=== PATIENT | female | born 1960 | race Caucasian/White ===

== ENCOUNTER 2020-03-01 12:29 | Observation (INO) ==
[~2020-03-01 12:29] MED LIST: Acetaminophen IV 1,000 MG/100 ML INFUS..BTL IVPB ONE; Famotidine 20 MG/2 ML VIAL IVP ONE; Total Joint Mixture (50 ml) INTRAART ONE; diazePAM 5 MG TABLET PO ONE
[2020-03-01] MEDS ORDERED: CeFAZolin Syr 2,000MG/20 ML 2,000 MG/20 ML SYRINGE IVPB ONE (13:03)
[2020-03-01] MEDS ORDERED: Ringers Solution, Lactated 1,000 ML IVC SCH (13:15)
[2020-03-01] MEDS ORDERED: Ondansetron 4 MG/2 ML VIAL IVP ONE (13:22)
[2020-03-01] MEDS ORDERED: Vancomycin 1,000 MG VIAL ONE ×2 (13:40→13:45)
[2020-03-01] MEDS ORDERED: *HR* FentaNYL (PF) 100 MCG/2 ML VIAL ONE (13:41)
[2020-03-01] MEDS ORDERED: *HR* Succinylcholine 200 MG/10 ML VIAL IVP ONE (13:41)
[2020-03-01] MEDS ORDERED: Ethanol\\Acetic Acid\\Na Ace\\Ben 1,000 ML IRRIG.SOLN IR ONE ×2 (13:41→13:45)
[2020-03-01] MEDS ORDERED: *HR* Propofol 200 MG/20 ML VIAL IVP ONE ×2 (13:41→15:10)
[2020-03-01] MEDS ORDERED: Lidocaine -MPF 2% 2 ML VIAL ONE (13:41)
[2020-03-01] MEDS ORDERED: *HR* Midazolam HCl 2 MG/2 ML VIAL ONE (13:41)
[2020-03-01 14:14] LABS: INR 0.9; Prothrombin Time 10.6 Seconds (9.4-12.1)
[2020-03-01] MEDS ORDERED: Ropivacaine/PF 0.5% 30 ML VIAL ONE (14:46)
[2020-03-01] MEDS ORDERED: Dexamethasone 4 MG/ML VIAL ONE (15:50)
[2020-03-01] MEDS ORDERED: Ondansetron 4 MG/2 ML VIAL ONE (15:50)
[2020-03-01] MEDS: *HR* HYDROmorphone PF 0.5 MG/0.5 ML SYRINGE IVP PRN ×3 (17:28→17:52)
[2020-03-01] MEDS ORDERED: *HR* Promethazine 25 MG/ML VIAL IVP PRN (17:49)
[2020-03-01 18:11] LABS: Hematocrit 35.6 % (35.3-44.9); Hemoglobin 11.1 g/dL (11.5-15.4)
[2020-03-01] MEDS ORDERED: Naloxone 0.4 MG/ML INJ IVP PRN (18:14)
[2020-03-01] MEDS ORDERED: Sennosides 8.6 MG TABLET PO PRN (18:14)
[2020-03-01] MEDS ORDERED: *HR* Dextrose 50 % in Water (Vial) 50 ML VIAL IVP PRN (18:14)
[2020-03-01] MEDS ORDERED: Dextrose Gel 15 GM/37.5 ML TUBE PO PRN ×2 (18:14)
[2020-03-01] MEDS ORDERED: MOM Conc 10 ML UD.LIQ PO PRN (18:14)
[2020-03-01] MEDS ORDERED: D5% in Water 1,000 ML IVC PRN (18:14)
[2020-03-01] MEDS: Insulin LISPRO 300 UNITS/3 ML VIAL SQ SCH ×2 (18:48→22:22)
[2020-03-01] MEDS: Ascorbic Acid 500 MG TABLET PO SCH (18:56)
[2020-03-01] MEDS: *HR* Enoxaparin 30 MG/0.3 ML SYRINGE SQ SCH (18:56)
[2020-03-01] MEDS: Ringers Solution, Lactated 1,000 ML IVC SCH (18:57)
[2020-03-01] MEDS: *HR* Warfarin 7.5 MG TABLET PO SCH (19:30)
[2020-03-01] MEDS: HYDROcodone BIT/Homatropine 5 MG TABLET PO PRN (19:52)
[2020-03-02] MEDS: CeFAZolin 2 GM/120 ML BAG IVPB SCH ×2 (00:37→08:42)
[2020-03-02 01:39] LABS: Basophils % 0.1 %; Hemoglobin 10.2 g/dL (11.5-15.4); Immature Granulocytes % 0.7 % (0-4); Lymphocytes # 0.8 K/mcL (0.6-4.6); Lymphocytes % 6.1 %; Mean Corpuscular HGB Conc 31.9 g/dL (31.6-35.5); Mean Corpuscular Hemoglobin 29.6 pg (28.0-33.3); Mean Corpuscular Volume 92.8 fL (83.0-100.0); Mean Platelet Volume 10.3 fL (9.4-12.4); Monocytes # 0.3 K/mcL (0.0-1.3); Neutrophils # 12.4 K/mcL (1.6-8.9); Platelet Count 163 K/mcL (140-400); Red Blood Count 3.45 M/mcL (3.82-4.97); Red Cell Distribution Width 12.9 % (11.5-14.5); Segmented Neutrophils % 91.1 %; White Blood Count 13.6 K/mcL (4.3-11.1)
[2020-03-02 01:58] LABS: BUN/Creatinine Ratio 16 (6-26); Blood Urea Nitrogen 13 mg/dL (8-23); Calcium 7.9 mg/dL (8.6-10.3); Carbon Dioxide 23 mEq/L (23-29); Chloride 104 mEq/L (98-107); Glucose 150 mg/dL (70-105); Osmolality,Calculated 285 (280-300); Potassium 4.3 mEq/L (3.5-5.1); Sodium 136 mEq/L (136-145); eGFR For African Americans > 60 (> 60); eGFR For Non-African Americans > 60 (> 60)
[2020-03-02] MEDS ORDERED: Acetaminophen IV 1,000 MG/100 ML INFUS..BTL IVPB PRN (02:13)
[2020-03-02] MEDS: HYDROcodone BIT/Homatropine 5 MG TABLET PO PRN ×2 (05:19→14:44)
[2020-03-02] MEDS: *HR* Enoxaparin 30 MG/0.3 ML SYRINGE SQ SCH ×2 (05:19→17:09)
[2020-03-02] MEDS ORDERED: 0.9 % Sodium Chloride 500 ML IVC ONE (07:30)
[2020-03-02] MEDS: Ketorolac 30 MG/ML VIAL IVP PRN ×2 (08:36→20:02)
[2020-03-02] MEDS: Cyanocobalamin (B-12) 1,000 MCG TABLET PO SCH (08:39)
[2020-03-02] MEDS: Cholecalciferol (D-3) 1,000 UNIT (25MCG) TABLET PO SCH (08:39)
[2020-03-02] MEDS: Multivit/Ca/Min/Fe/FA 1 TAB TABLET PO SCH (08:40)
[2020-03-02] MEDS: FLUoxetine 20 MG CAPSULE PO SCH (08:40)
[2020-03-02] MEDS: Ascorbic Acid 500 MG TABLET PO SCH ×2 (08:40→17:09)
[2020-03-02] MEDS: Insulin LISPRO 300 UNITS/3 ML VIAL SQ SCH ×4 (08:43→21:22)
[2020-03-02] MEDS ORDERED: NON-FORMULARY MEDICATION 1 EACH EACH (Multivit-Min/Fa/Lycopen/Lutein [Adults 50+ Multivita PO SCH (09:00)
[2020-03-02] MEDS ORDERED: NON-FORMULARY MEDICATION 1 EACH EACH (Fluticasone/Umeclidin/Vilanter [Trelegy Ellipta 100- IH SCH (09:00)
[2020-03-02] MEDS: Budesonide/Formoterol 160/4.5 1 PUFF INH IH SCH ×2 (10:50→20:22)
[2020-03-02] MEDS: Tiotropium 18 MCG inhalation IH SCH (10:51)
[2020-03-02] MEDS: Ondansetron 4 MG/2 ML VIAL IVP PRN ×2 (11:00→19:58)
[2020-03-02] MEDS: *HR* Warfarin 7.5 MG TABLET PO SCH (17:10)
[2020-03-02] MEDS: *HR* OxyCODONE Immed Rel 5 MG TABLET PO PRN (17:20)
[2020-03-03] MEDS: *HR* Promethazine 25 MG/ML VIAL IVP PRN ×3 (00:04→16:50)
[2020-03-03] MEDS: *HR* OxyCODONE Immed Rel 5 MG TABLET PO PRN ×5 (00:04→21:18)
[2020-03-03] MEDS: Ondansetron 4 MG/2 ML VIAL IVP PRN ×3 (05:05→21:19)
[2020-03-03] MEDS: *HR* Enoxaparin 30 MG/0.3 ML SYRINGE SQ SCH ×2 (05:06→16:48)
[2020-03-03 06:43] LABS: Basophils # 0.1 K/mcL (0.0-0.2); Basophils % 0.4 %; Eosinophils # 0.1 K/mcL (0.0-0.6); Eosinophils % 0.5 %; Hematocrit 28.2 % (35.3-44.9); Immature Granulocytes % 0.9 % (0-4); Lymphocytes # 2.3 K/mcL (0.6-4.6); Lymphocytes % 17.8 %; Mean Corpuscular HGB Conc 31.9 g/dL (31.6-35.5); Mean Platelet Volume 10.6 fL (9.4-12.4); Monocytes # 1.2 K/mcL (0.0-1.3); Monocytes % 9.5 %; Neutrophils # 9.2 K/mcL (1.6-8.9); Platelet Count 182 K/mcL (140-400); Red Cell Distribution Width 13.4 % (11.5-14.5); Segmented Neutrophils % 70.9 %
[2020-03-03 07:05] LABS: BUN/Creatinine Ratio 17 (6-26); Blood Urea Nitrogen 15 mg/dL (8-23); Calcium 8.1 mg/dL (8.6-10.3); Carbon Dioxide 25 mEq/L (23-29); Chloride 105 mEq/L (98-107); Glucose 118 mg/dL (70-105); Osmolality,Calculated 286 (280-300); Potassium 4.1 mEq/L (3.5-5.1); Sodium 137 mEq/L (136-145); eGFR For African Americans > 60 (> 60); eGFR For Non-African Americans > 60 (> 60)
[2020-03-03] MEDS: Budesonide/Formoterol 160/4.5 1 PUFF INH IH SCH ×2 (08:08→19:45)
[2020-03-03] MEDS: Tiotropium 18 MCG inhalation IH SCH (08:08)
[2020-03-03] MEDS: Ringers Solution, Lactated 1,000 ML IVC SCH ×2 (08:12→12:21)
[2020-03-03] MEDS: Insulin LISPRO 300 UNITS/3 ML VIAL SQ SCH ×4 (08:14→20:42)
[2020-03-03] MEDS: Cyanocobalamin (B-12) 1,000 MCG TABLET PO SCH (10:06)
[2020-03-03] MEDS: Cholecalciferol (D-3) 1,000 UNIT (25MCG) TABLET PO SCH (10:06)
[2020-03-03] MEDS: Multivit/Ca/Min/Fe/FA 1 TAB TABLET PO SCH (10:06)
[2020-03-03] MEDS: Ascorbic Acid 500 MG TABLET PO SCH ×2 (10:06→16:47)
[2020-03-03] MEDS: FLUoxetine 20 MG CAPSULE PO SCH (10:07)
[2020-03-03] MEDS: HYDROcodone BIT/Homatropine 5 MG TABLET PO PRN (13:24)
[2020-03-03] MEDS: *HR* Warfarin 7.5 MG TABLET PO SCH (17:02)
[2020-03-04] MEDS: *HR* OxyCODONE Immed Rel 5 MG TABLET PO PRN ×4 (02:24→20:44)
[2020-03-04] MEDS: *HR* Promethazine 25 MG/ML VIAL IVP PRN ×2 (02:24→13:00)
[2020-03-04] MEDS: *HR* Enoxaparin 30 MG/0.3 ML SYRINGE SQ SCH ×2 (05:43→18:10)
[2020-03-04] MEDS: Tiotropium 18 MCG inhalation IH SCH (07:53)
[2020-03-04] MEDS: Budesonide/Formoterol 160/4.5 1 PUFF INH IH SCH ×2 (07:54→22:08)
[2020-03-04] MEDS: Insulin LISPRO 300 UNITS/3 ML VIAL SQ SCH ×4 (07:55→21:19)
[2020-03-04] MEDS: Ascorbic Acid 500 MG TABLET PO SCH ×2 (08:01→18:10)
[2020-03-04] MEDS: Cyanocobalamin (B-12) 1,000 MCG TABLET PO SCH (08:01)
[2020-03-04] MEDS: Cholecalciferol (D-3) 1,000 UNIT (25MCG) TABLET PO SCH (08:01)
[2020-03-04] MEDS: Multivit/Ca/Min/Fe/FA 1 TAB TABLET PO SCH (08:01)
[2020-03-04] MEDS: FLUoxetine 20 MG CAPSULE PO SCH (08:01)
[2020-03-04] MEDS: Ondansetron 4 MG/2 ML VIAL IVP PRN ×2 (08:06→20:44)
[2020-03-04] MEDS: Scopolamine Patch 1.5 MG PATCH.TD72 TD SCH (10:03)
[2020-03-04] MEDS: HYDROcodone BIT/Homatropine 5 MG TABLET PO PRN (10:08)
[2020-03-04 19:02] LABS: INR 1.3; Prothrombin Time 15.3 Seconds (9.4-12.1)
[2020-03-04] MEDS: *HR* Warfarin 7.5 MG TABLET PO SCH (20:58)
[2020-03-05] MEDS: *HR* Enoxaparin 30 MG/0.3 ML SYRINGE SQ SCH ×2 (05:29→17:00)
[2020-03-05] MEDS: Tiotropium 18 MCG inhalation IH SCH (07:20)
[2020-03-05] MEDS: Budesonide/Formoterol 160/4.5 1 PUFF INH IH SCH ×2 (07:21→20:10)
[2020-03-05] MEDS: Ascorbic Acid 500 MG TABLET PO SCH ×2 (08:29→16:59)
[2020-03-05] MEDS: Multivit/Ca/Min/Fe/FA 1 TAB TABLET PO SCH (08:29)
[2020-03-05] MEDS: Cholecalciferol (D-3) 1,000 UNIT (25MCG) TABLET PO SCH (08:29)
[2020-03-05] MEDS: Cyanocobalamin (B-12) 1,000 MCG TABLET PO SCH (08:29)
[2020-03-05] MEDS: *HR* OxyCODONE Immed Rel 5 MG TABLET PO PRN ×4 (08:29→20:54)
[2020-03-05] MEDS: FLUoxetine 20 MG CAPSULE PO SCH (08:29)
[2020-03-05] MEDS: Ondansetron 4 MG/2 ML VIAL IVP PRN (08:31)
[2020-03-05] MEDS: Insulin LISPRO 300 UNITS/3 ML VIAL SQ SCH ×4 (08:42→21:00)
[2020-03-05] MEDS: HYDROcodone BIT/Homatropine 5 MG TABLET PO PRN (10:24)
[2020-03-05] MEDS: *HR* Promethazine 25 MG/ML VIAL IVP PRN ×2 (14:59→20:53)
[2020-03-05] MEDS: *HR* Warfarin 7.5 MG TABLET PO SCH (17:00)
[2020-03-06] MEDS: *HR* OxyCODONE Immed Rel 5 MG TABLET PO PRN ×4 (03:58→21:50)
[2020-03-06] MEDS: Ondansetron 4 MG/2 ML VIAL IVP PRN (04:03)
[2020-03-06] MEDS: *HR* Enoxaparin 30 MG/0.3 ML SYRINGE SQ SCH (05:36)
[2020-03-06] MEDS: Cholecalciferol (D-3) 1,000 UNIT (25MCG) TABLET PO SCH (08:29)
[2020-03-06] MEDS: FLUoxetine 20 MG CAPSULE PO SCH (08:29)
[2020-03-06] MEDS: Ascorbic Acid 500 MG TABLET PO SCH ×2 (08:29→15:50)
[2020-03-06] MEDS: Cyanocobalamin (B-12) 1,000 MCG TABLET PO SCH (08:29)
[2020-03-06] MEDS: Multivit/Ca/Min/Fe/FA 1 TAB TABLET PO SCH (08:29)
[2020-03-06] MEDS: Insulin LISPRO 300 UNITS/3 ML VIAL SQ SCH ×3 (08:43→22:36)
[2020-03-06] MEDS: Tiotropium 18 MCG inhalation IH SCH ×2 (09:45→22:12)
[2020-03-06] MEDS: Budesonide/Formoterol 160/4.5 1 PUFF INH IH SCH ×2 (09:45→20:13)
[2020-03-06] MEDS: *HR* Promethazine 25 MG/ML VIAL IVP PRN (10:16)
[2020-03-06] MEDS: Ondansetron ODT 4 MG TAB.RAPDIS SL PRN ×2 (16:19→21:52)
[2020-03-06] MEDS: *HR* Warfarin 7.5 MG TABLET PO SCH (17:56)
[2020-03-07] MEDS: *HR* OxyCODONE Immed Rel 5 MG TABLET PO PRN ×3 (07:51→17:31)
[2020-03-07] MEDS: Ondansetron ODT 4 MG TAB.RAPDIS SL PRN ×2 (07:51→17:31)
[2020-03-07] MEDS: Insulin LISPRO 300 UNITS/3 ML VIAL SQ SCH ×3 (07:59→12:17)
[2020-03-07] MEDS: Budesonide/Formoterol 160/4.5 1 PUFF INH IH SCH (08:05)
[2020-03-07] MEDS: Tiotropium 18 MCG inhalation IH SCH (08:06)
[2020-03-07] MEDS: Scopolamine Patch 1.5 MG PATCH.TD72 TD SCH (11:13)
[2020-03-07] MEDS: FLUoxetine 20 MG CAPSULE PO SCH (11:15)
[2020-03-07] MEDS: Ascorbic Acid 500 MG TABLET PO SCH (12:05)
[2020-03-07] MEDS: Cyanocobalamin (B-12) 1,000 MCG TABLET PO SCH (12:05)
[2020-03-07] MEDS: Multivit/Ca/Min/Fe/FA 1 TAB TABLET PO SCH (12:05)
[2020-03-07] MEDS: Cholecalciferol (D-3) 1,000 UNIT (25MCG) TABLET PO SCH (12:06)
[2020-03-07 16:01] VITALS: BP 134/78
[2020-03-07] MEDS ORDERED: *HR* Warfarin 7.5 MG TABLET PO SCH (18:00)
== END 2020-03-07 17:50 ==
LOC: SAMDAY 12:29 → 3NENU 12:29
PROVIDERS: ADMIT Orthopaedic Surgery; ATTEND Orthopaedic Surgery